=== PATIENT | female | born 1970 | race Caucasian/White ===

== ENCOUNTER → 2024-04-11 14:49 | Outpatient (REF) | payer BC, OTHER, SELFPAY | LOC: HWRAD 14:49 | PROVIDERS: ATTENDING PHYSICIAN Nurse Practitioner Primary Care | DX: M85.89 Other specified disorders of bone density and structure, multiple sites (principal) | CPT/HCPCS: 77080 ==

== ENCOUNTER → 2024-04-12 07:10 | Outpatient (REF) | payer BC, OTHER, SELFPAY | LOC: WDC 07:10 | PROVIDERS: ATTENDING PHYSICIAN Nurse Practitioner Primary Care | DX: Z12.31 Encounter for screening mammogram for malignant neoplasm of breast (principal) | CPT/HCPCS: 77063; 77067 ==

== ENCOUNTER → 2024-04-23 08:57 | Outpatient (REF) | payer BC, OTHER, SELFPAY | LOC: RAD 08:57 | PROVIDERS: ATTENDING PHYSICIAN Obstetrics & Gynecology; FAMILY PHYSICIAN Nurse Practitioner Primary Care | DX: R10.2 Pelvic and perineal pain (principal); N39.46 Mixed incontinence; R39.11 Hesitancy of micturition | CPT/HCPCS: 76830; 76856 ==

== ENCOUNTER 2024-05-19 22:02 | Emergency (ER) | payer BC, OTHER, SELFPAY ==
[2024-05-19 22:35] VITALS: BP 171/103
[2024-05-20 01:37] VITALS: BP 131/118; BMI 29.6
--- NOTE | 2024-05-20 01:54 | ED.GENMED ---
History of Present Illness
<Nabil Kay DO - Last Filed: 05/20/24 03:42>
General
Chief Complaint: Breathing Problem
Source: patient
Exam Limitations: none
Time Seen by Provider: 05/20/24 01:44
Nursing documentation reviewed up to this point in time: agreed with
History of Present Illness
History of Present Illness:
53-year-old female history of bronchiectasis and rheumatoid on embrel [facility] is been on Augmentin for 3 days for URI via phone conversation had some low-grade fevers and cough some productive sputum
No nausea vomiting
Past History
<Nabil Kay DO - Last Filed: 05/20/24 03:42>
Past History
ED Past Medical History: Asthma, HTN, Psychiatric (Depression, ADD), Other (Migraine headaches, narcolepsy, chronic pancreatitis) and Other (Pelvic floor dysfunction, fibromyalgia, irritable bowel syndrome, Sjogren's disease, osteoporosis, kidney
stones, sphincter of Adonis dysfunction)
ED Past Surgical History: Cholecystectomy, , Orthopedic (Rotator cuff repair) and Tonsilectomy
Social History
Tobacco: Former smoker
Alcohol: Occasional
Drug: None
Personal:
Living: with family
Employment: Not employed
Family History
Family History: Other (Noncontributory)
Review of Systems
<Nabil Kay DO - Last Filed: 05/20/24 03:42>
Review of Systems
All Other Systems: Not applicable
Constitutional: Reports fever and fatigue
EENT: Reports no symptoms
Respiratory: Reports cough and trouble breathing
Cardiac: Reports no symptoms
ABD/GI: Reports no symptoms
: Reports no symptoms
Phy Exam
<Nabil Kay DO - Last Filed: 05/20/24 03:42>
Physical Exam
Physical Exam:
Physical Exam
General: no apparent distress, not acutely ill
Neck: No jaundice
Heart: s1/s2 regular rate and rhythm, no murmur. equal radial pulses.
Lungs: Wheezing at the left
Abdomen: Nontender
Neuro: alert and oriented. no focal neurological deficits
Skin: no rash
Psychiatric: well kept. interactive and cooperative
Extremities: no edema.
Scores
<Lashay France PA-C - Last Filed: 05/20/24 11:38>
Heart Failure Risk
Heart Failure Risk Score: Not Applicable
Sepsis
<Lashay France PA-C - Last Filed: 05/20/24 11:38>
Sepsis Screening
Sepsis Assessment: Sepsis Ruled Out
Sepsis Screen
Sepsis Screen: Sepsis Ruled Out
Date: 05/20/24
Time: 11:38
Course
<Nabil Kay DO - Last Filed: 05/20/24 03:42>
Orders/Labs/Results
Orders:
Orders
05/20/24 01:39
COVID-19 Antigen Urgent
Source: Nasal Swab
05/20/24 01:54
Ipratropium/Albuterol Sulfate [Duoneb] 3 ml INH R NOW STA
CR Chest - 2 Views Urgent
Comment:
Reason For Exam: fever cough
05/20/24 01:59
Complete Blood Count/With Diff Urgent
Comprehensive Metabolic Panel Urgent
Influenza A+B Rapid Molecular Urgent
CHIRAG Source: Nasal Swab
Specimen Description:
05/20/24 03:39
Potassium Chloride [KCl] 40 meq PO NOW STA
Abnormal Lab Results
05/20/24
01:59
Hgb 11.8 L g/dL
(12.0-16.0)
Hct 35.1 L %
(37.0-47.0)
MCV 76.1 L fL
(81.0-99.0)
MCH 25.6 L pg
(27.0-31.0)
Neutrophils % 40.7 L %
(42.2-75.2)
Monocytes % 11.1 H %
(1.7-9.3)
Potassium 3.4 L mmol/L
(3.5-5.1)
BUN 4 L mg/dl
(7-17)
05/20/24 01:59
05/20/24 01:59
Vital Signs
Initial and Last Documented VS:
Initial Vital Signs
Temp Pulse Resp BP Pulse Ox
98.0 F 58 20 171/103 96
05/19/24 22:35 05/19/24 22:35 05/19/24 22:35 05/19/24 22:35 05/19/24 22:35
Last Documented Vital Signs
Temp Pulse Resp BP Pulse Ox
97.9 F 55 16 131/118 95
05/20/24 01:37 05/20/24 01:37 05/20/24 01:37 05/20/24 01:37 05/20/24 01:37
Tonialt;Lashay France PA-C - Last Filed: 05/20/24 11:38>
Orders/Labs/Results
Orders:
Orders
05/20/24 01:39
COVID-19 Antigen Urgent
Source: Nasal Swab
05/20/24 01:54
Ipratropium/Albuterol Sulfate [Duoneb] 3 ml INH R NOW STA
CR Chest - 2 Views Urgent
Comment:
Reason For Exam: fever cough
05/20/24 01:59
Complete Blood Count/With Diff Urgent
Comprehensive Metabolic Panel Urgent
Influenza A+B Rapid Molecular Urgent
CHIRAG Source: Nasal Swab
Specimen Description:
05/20/24 03:39
Potassium Chloride [KCl] 40 meq PO NOW STA
Abnormal Lab Results
05/20/24
01:59
Hgb 11.8 L g/dL
(12.0-16.0)
Hct 35.1 L %
(37.0-47.0)
MCV 76.1 L fL
(81.0-99.0)
MCH 25.6 L pg
(27.0-31.0)
Neutrophils % 40.7 L %
(42.2-75.2)
Monocytes % 11.1 H %
(1.7-9.3)
Potassium 3.4 L mmol/L
(3.5-5.1)
BUN 4 L mg/dl
(7-17)
05/20/24 01:59
05/20/24 01:59
Vital Signs
Initial and Last Documented VS:
Initial Vital Signs
Temp Pulse Resp BP Pulse Ox
98.0 F 58 20 171/103 96
05/19/24 22:35 05/19/24 22:35 05/19/24 22:35 05/19/24 22:35 05/19/24 22:35
Last Documented Vital Signs
Temp Pulse Resp BP Pulse Ox
97.9 F 55 16 131/118 95
05/20/24 01:37 05/20/24 01:37 05/20/24 01:37 05/20/24 01:37 05/20/24 01:37
Tonialt;Nabil Kay DO - Last Filed: 05/20/24 03:42>
MDM/Problems Addressed
Differential Diagnosis Includes:
Pneumonia bronchitis bronchiectasis
MDM/Problems Addressed:
Cough shortness of breath
Chronic conditions affecting care:
Rheumatoid
Acute Exacerbation and/or Progression of Chronic Illness:
Rheumatoid bronchiectasis
<Nabil Kay DO - Last Filed: 05/20/24 03:42>
*Radiology
Radiology exam reviewed: preliminary read by ED provider
*Pulse Oximetry
Patient hypoxic: no
*Critical Care Note
Total Time (30-74mins, 75-104mins- exclusive of procedures): Not Applicable
<Nabil Kay DO - Last Filed: 05/20/24 03:42>
Update Note
Update Note:
Update chest x-ray noted labs are noted, allergies noted will discharge with albuterol continue antibiotics
<Lashay France PA-C - Last Filed: 05/20/24 11:38>
Update Note
Update Note:
Update chest x-ray noted labs are noted, allergies noted will discharge with albuterol continue antibiotics
05/20/24: I was notified by patient's pharmacy that did not carry the specific ProAir inhaler that was ordered yesterday. They state that patient has used ProAir respiclick inhaler in the past. I did send this new prescription for patient.
ED Attending Note
<Nabil Kay DO - Last Filed: 05/20/24 03:42>
-
Portions of this chart may have been created with voice recognition software.� Occasional wrong word or��sound alike� substitutions may have occurred due to the inherent limitations of voice recognition software.
Discharge Plan
Departure
Patient Disposition: Home (Routine Discharge)
Date of Disposition: 05/20/24
Time of Disposition: 03:40
Patient with high blood pressure during this ER visit?: No
Condition: Good
Covid-19: Negative COVID-19
Discharge Problem:
Acute bronchitis
Instructions: Acute Bronchitis, Adult (DC), Bronchitis, Adult ED
Prescriptions:
New
albuterol sulfate 90 mcg/actuation HFA aerosol inhaler
2 puff inhalation Q6H PRN (Reason: shortness of breath or wheezing) Qty: 8.5 0RF
benzonatate 200 mg capsule
200 mg PO TID PRN (Reason: Cough) Qty: 20 0RF
Proair Digihaler 90 mcg/actuation aero powdr breath act w/sensor
2 inh inhalation QID PRN (Reason: shortness of breath) Qty: 1 4RF
ProAir RespiClick 90 mcg/actuation aerosol powdr breath activated
2 inh inhalation QID PRN (Reason: shortness of breath) Qty: 1 0RF
No Action
therapeutic multivitamin [Therapeutic] 1 TABLET tablet
1 tab PO DAILY
albuterol sulfate 1 PUFF HFA aerosol inhaler
2 puff inhalation R Q4HPRN PRN (Reason: cough, wheeze) Qty: 1 0RF
colestipol 1 GM tablet
2 gm PO BID
fexofenadine [Hortensia] 180 MG tablet
180 mg PO DAILY
tramadol 50 MG tablet
50 mg PO Q6HPRN PRN (Reason: MILD PAIN)
calcium carbonate [Oyster Shell Calcium 500] 500 MG tablet
1,500 mg PO DAILY
taurine 500 MG capsule
1,000 mg PO DAILY
naratriptan [Amerge] 2.5 MG tablet
2.5 mg PO DAILYPRN PRN (Reason: MIGRAINE)
topiramate [Topamax] 50 MG tablet
50 mg PO BID
cholecalciferol (vitamin D3) 2,000 UNITS tablet
5,000 units PO DAILY
hydrocodone-acetaminophen 1 TABLET tablet
1 tab PO QIDPRN PRN (Reason: MODERATE pain)
alendronate 70 MG tablet
70 mg PO WEEKLY
nortriptyline 25 MG capsule
25 mg PO DAILY
nortriptyline 10 MG capsule
10 mg PO BID
fluticasone propion-salmeterol [Advair Diskus] 1 EACH blister with device
1 ea IH BID
gabapentin 100 MG capsule
100 mg PO Q4H
dextroamphetamine-amphetamine [Adderall XR] 15 MG capsule,extended release 24hr
15 mg PO BID
tofacitinib [Xeljanz XR] 11 MG tablet extended release 24 hr
11 mg PO DAILY
solriamfetol [Sunosi] 150 MG tablet
150 mg PO DAILY
labetalol 100 MG tablet
100 mg PO DAILY 30 Days Qty: 30 0RF
nifedipine 30 mg tablet extended release
30 mg PO DAILY Qty: 30 0RF
prednisone 20 mg tablet
40 mg PO DAILY Qty: 8 0RF
hydrocodone-acetaminophen 5-325 mg tablet
1 tab PO Q8H PRN (Reason: Pain) Qty: 6 0RF
Referrals:
Dena Ge CRNP [Family Provider] - Next open appointment
Stand Alone Forms: Return to Work
Interventions
Interventions:
*Risk Screen - Suicide Last Done: 05/19/24 22:35
*General Assessment Last Done: 05/20/24 01:32
*Neglect/Abuse Screening Last Done: 05/19/24 22:35
ED- Fall Risk Assessment Last Done: 05/20/24 01:32
*ED COVID-19 Vaccine History Last Done: 05/20/24 01:32
*Nursing Disposition Last Done: 05/20/24 04:01
ED- Cardiac Assessment Last Done: 05/20/24 01:32
ED- Pulmonary Assessment Last Done: 05/20/24 01:32
Discharge Date and Time
Discharge Date/Time: 05/20/24 04:02
Print Language: [place]LAND[place]
[2024-05-20] MEDS: DUONEB 3 ML INH (02:03)
[2024-05-20 02:09] LABS: COVID-19 Antigen Negative (Negative)
[2024-05-20 02:10] LABS: % Basophils 0.7 % (0-2); % Eosinophils 3.9 % (0-6); % Immature Granulocytes 0.2 % (0-0.5); % Lymphocytes 43.4 % (20.5-51.1); % Monocytes 11.1 % (1.7-9.3); % Neutrophils 40.7 % (42.2-75.2); Absolute Eosinophils 0.2 10^3/uL (0-0.7); Absolute Lymphocytes 2.4 10^3/uL (1.2-3.4); Absolute Monocytes 0.6 10^3/uL (0.1-0.6); Absolute Neutrophils 2.3 10^3/uL (1.4-6.5); Hematocrit 35.1 % (37.0-47.0); Hemoglobin 11.8 g/dL (12.0-16.0); Mean Corp Hgb Conc. 33.6 g/dL (33.0-37.0); Mean Corpuscular Hgb 25.6 pg (27.0-31.0); Mean Corpuscular Volume 76.1 fL (81.0-99.0); Mean Platelet Volume 9.9 fL (7.4-10.4); Nucleated Red Blood Cells % 0 %; Platelet Count 254 10^3/uL (130-400); Red Blood Cell Count 4.61 10^6/uL (4.20-5.40); Red Cell Dist. Width 13.4 % (11.5-14.5); White Blood Cell Count 5.6 10^3/uL (4.8-10.8)
[2024-05-20 02:31] LABS: ALT (SGPT) 26 U/L (0-35); AST (SGOT) 32 U/L (14-36); Alkaline Phosphatase 71 U/L (38-126); Blood Urea Nitrogen 4 mg/dl (7-17); Calcium 9.4 mg/dl (8.4-10.2); Carbon Dioxide 27 mmol/L (22-30); Chloride 104 mmol/L (98-107); Estimated Creatinine Clearance 97 ml/min; Glucose 90 mg/dl (70-99); Potassium 3.4 mmol/L (3.5-5.1); Sodium 143 mmol/L (135-145); Total Bilirubin 0.9 mg/dl (0.2-1.3); Total Protein 6.7 g/dl (6.3-8.2); eGFR > 60.00
[2024-05-20] MEDS: KCL 40 MEQ PO (03:55)
== END 2024-05-20 04:02 | disposition home or self-care (01) ==
LOC: EMR 22:02
PROVIDERS: Emergency Medicine; EMERGENCY PHYSICIAN Emergency Medicine; FAMILY PHYSICIAN Nurse Practitioner Primary Care
DX: J20.9 Acute bronchitis, unspecified (principal); Z11.52 Encounter for screening for COVID-19; Z87.891 Personal history of nicotine dependence
CPT/HCPCS: 99284; 94640; 71046; 80053; 85025; 87502; 87811

== ENCOUNTER 2025-01-06 04:58 | Inpatient (IN) | payer BC, OTHER, SELFPAY ==
[2025-01-05 22:36] VITALS: BP 159/94
[2025-01-05 23:00] LABS: % Basophils 0.4 % (0-2); % Eosinophils 1.3 % (0-6); % Immature Granulocytes 0.3 % (0-0.5); % Lymphocytes 15.4 % (20.5-51.1); % Monocytes 7.1 % (1.7-9.3); % Neutrophils 75.5 % (42.2-75.2); Absolute Eosinophils 0.1 10^3/uL (0-0.7); Absolute Lymphocytes 1.1 10^3/uL (1.2-3.4); Absolute Monocytes 0.5 10^3/uL (0.1-0.6); Absolute Neutrophils 5.3 10^3/uL (1.4-6.5); Hematocrit 39.7 % (37.0-47.0); Hemoglobin 13.1 g/dL (12.0-16.0); Mean Corpuscular Hgb 26.3 pg (27.0-31.0); Mean Corpuscular Volume 79.6 fL (81.0-99.0); Mean Platelet Volume 9.6 fL (7.4-10.4); Nucleated Red Blood Cells % 0 %; Platelet Count 262 10^3/uL (130-400); Red Blood Cell Count 4.99 10^6/uL (4.20-5.40); Red Cell Dist. Width 13.4 % (11.5-14.5)
[2025-01-05 23:15] LABS: ALT (SGPT) 26 U/L (0-35); AST (SGOT) 30 U/L (14-36); Albumin 4.5 g/dl (3.5-5.0); Alkaline Phosphatase 54 U/L (38-126); Blood Urea Nitrogen 6 mg/dl (7-17); Calcium 9.1 mg/dl (8.4-10.2); Carbon Dioxide 26 mmol/L (22-30); Chloride 107 mmol/L (98-107); Glucose 89 mg/dl (70-99); Lipase 1338 U/L (23-300); Potassium 3.9 mmol/L (3.5-5.1); Sodium 139 mmol/L (135-145); Total Bilirubin 2.4 mg/dl (0.2-1.3); Total Protein 7.5 g/dl (6.3-8.2); eGFR > 60.00
[2025-01-06 01:13] VITALS: BMI 26.3
[2025-01-06 01:15] VITALS: BP 150/94
--- NOTE | 2025-01-06 01:47 | ED.GENMED ---
History of Present Illness
General
Chief Complaint: Abdominal Pain
Source: patient
Exam Limitations: none
Time Seen by Provider: 01/06/25 01:30
Nursing documentation reviewed up to this point in time: agreed with
History of Present Illness
History of Present Illness:
Note:
CHIEF COMPLAINT(S)
Upper abdominal pain.
HISTORY OF PRESENT ILLNESS
The patient is a 54-year-old female with a past medical history of GERD, asthma, hypertension, hyperlipidemia with a history of gallbladder removal who presents with upper abdominal pain. Pain is worse on the right side. It does not wrap around the
back. She reports that the pain is similar to previous episodes she has experienced on and off for the past 25 years, with exacerbations occurring recently. The patient does not have any vomiting but reports episodes of constipation. She denies
chronic pancreatitis. She also experienced a sore throat on Sunday and has conducted an at-home COVID-19 test that returned negative results. She has experienced fevers intermittently. The patient mentions no contact with anyone recently sick. Her
pain has previously been associated with bouts of pancreatitis, with the last known episode occurring before the COVID-19 pandemic. At the time, the cause was undetermined. Currently, her blood work shows significantly elevated lipase levels,
indicative of pancreatitis. Pain is exacerbated by lying down and palpation. The patient denies daily alcohol use and was previously advised about liver issues, though current liver function tests are normal.
ADDITIONAL HISTORY OBTAINED FROM SOURCES OTHER THAN THE PATIENT
Not applicable.
EXTERNAL RECORDS REVIEWED
Reviewed records in [facility], reviewed discharge summary from 05/16/2019 patient seen for acute pancreatitis in no etiology was able to be found
PAST SURGICAL HISTORY
Gallbladder removal.
sections.
SOCIAL HISTORY
The patient denies daily alcohol use and smoking.
MEDICATIONS
The patient reports an allergy to morphine, sulfa drugs, and quinolones. Can tolerate hydromorphone.
PHYSICAL EXAM
- Nursing notes reviewed and vital signs reviewed.
General: Patient is well appearing and in no acute distress; non-toxic
Skin: Warm and dry, no rashes or lesions
Head: Normocephalic, atraumatic
Eyes: Sclera non-icteric. EOMs intact.
Cardiac: Regular rate and rhythm, no murmurs
Peripheral Vascular: No lower extremity swelling or edema
Pulm: Normal respiratory effort, no wheezes, rales, or rhonchi
Abdomen: Epigastric tenderness to palpation, normoactive bowel sounds
Neuro: CN II-XII intact, no focal neurologic deficits.
Psychiatric: Appropriate mood and affect.
PLAN
The plan includes obtaining a computed tomography (CT) scan to assess the biliary tract and pancreas. The patient will be administered intravenous fluids and pain management with hydromorphone.
CT scan reviewed, no acute abnormality within the abdomen or pelvis, no evidence of bowel obstruction, no evidence of pancreatic masses.
Labs reviewed, elevated lipase, elevated total bilirubin, normal LFTs.
Will refer for admission for continued symptomatic management and GI consult
DIFFERENTIAL DIAGNOSIS
The Differential Diagnosis includes, in no particular order and is not limited to:
1. Acute pancreatitis
2. Recurrent pancreatitis
3. Gastroenteritis
4. Peptic ulcer disease
5. Gastritis
6. Hepatitis
7. Biliary duct stone
8. Pancreatic pseudocyst
9. Liver disease
10. Viral infection
Past History
Past History
ED Past Medical History: Asthma, HTN, Psychiatric (Depression, ADD), Other (Migraine headaches, narcolepsy, chronic pancreatitis) and Other (Pelvic floor dysfunction, fibromyalgia, irritable bowel syndrome, Sjogren's disease, osteoporosis, kidney
stones, sphincter of Adonis dysfunction)
ED Past Surgical History: Cholecystectomy, , Orthopedic (Rotator cuff repair) and Tonsilectomy
Social History
Tobacco: Former smoker
Alcohol: Occasional
Drug: None
Personal:
Living: with family
Employment: Not employed
Family History
Family History: Other (Noncontributory)
Review of Systems
Review of Systems
All Other Systems: ROS reviewed and negative except as documented in HPI and ROS
Phy Exam
Physical Exam
Physical Exam:
see hpi
Course
Orders/Labs/Results
Orders:
Orders
01/05/25 22:44
Complete Blood Count/With Diff Urgent
Comprehensive Metabolic Panel Urgent
Lipase Urgent
01/06/25 01:53
CT Abd/pelvis W Iv Cont Urgent
Comment:
Reason For Exam: epigastric pain
Lactated Ringers [Lr] 1,000 ml IV BOLUS
01/06/25 01:54
HYDROmorphone [Dilaudid] 0.5 mg IV NOW STA
01/06/25 03:34
HYDROmorphone [Dilaudid] 0.5 mg IV NOW STA
Abnormal Lab Results
01/05/25
22:44
MCV 79.6 L fL
(81.0-99.0)
MCH 26.3 L pg
(27.0-31.0)
Absolute Lymphs (auto) 1.1 L 10^3/uL
(1.2-3.4)
Neutrophils % 75.5 H %
(42.2-75.2)
Lymphocytes % 15.4 L %
(20.5-51.1)
BUN 6 L mg/dl
(7-17)
Total Bilirubin 2.4 H mg/dl
(0.2-1.3)
Lipase 1338 H* U/L
(23-300)
01/05/25 22:44
01/05/25 22:44
Vital Signs
Initial and Last Documented VS:
Initial Vital Signs
Temp Pulse Resp BP Pulse Ox
99.2 F 71 18 159/94 98
01/05/25 22:36 01/05/25 22:36 01/05/25 22:36 01/05/25 22:36 01/05/25 22:36
Last Documented Vital Signs
Temp Pulse Resp BP Pulse Ox
98.9 F 67 17 156/69 98
01/06/25 02:32 01/06/25 02:32 01/06/25 02:32 01/06/25 02:32 01/06/25 02:32
*Critical Care Note
Total Time (30-74mins, 75-104mins- exclusive of procedures): Not Applicable
Update Note
Update Note:
Update 3:34 am
Reviewed CAT scan findings with patient, patient requesting more pain medication, patient well-appearing, afebrile
ED Attending Note
-
Portions of this chart may have been created with voice recognition software.� Occasional wrong word or��sound alike� substitutions may have occurred due to the inherent limitations of voice recognition software.
Discharge Plan
Departure
Patient Disposition: Admit
Date of Disposition: 01/06/25
Time of Disposition: 03:39
Admit to: Med/Surg
Presentation/result/management discussed w/ accepting MD/DO: Hospitalist
Patient with high blood pressure during this ER visit?: Yes
Condition: Fair
Discharge Problem:
Acute pancreatitis
Prescriptions:
No Action
Therapeutic 1 TABLET tablet
1 tab PO DAILY
colestipol 1 GM tablet
2 gm PO BID
tramadol 50 MG tablet
50 mg PO Q6HPRN PRN (Reason: MILD PAIN)
calcium carbonate [Oyster Shell Calcium 500] 500 MG tablet
1,500 mg PO DAILY
naratriptan [Amerge] 2.5 MG tablet
2.5 mg PO DAILYPRN PRN (Reason: MIGRAINE)
cholecalciferol (vitamin D3) 2,000 UNITS tablet
5,000 units PO DAILY
nortriptyline 25 MG capsule
25 mg PO DAILY
fluticasone propion-salmeterol [Advair Diskus] 1 EACH blister with device
1 ea IH BID
gabapentin 100 MG capsule
100 mg PO Q4H
albuterol sulfate 90 mcg/actuation HFA aerosol inhaler
2 puff inhalation Q6H PRN (Reason: shortness of breath or wheezing) Qty: 8.5 0RF
ProAir RespiClick 90 mcg/actuation aerosol powdr breath activated
2 inh inhalation QID PRN (Reason: shortness of breath) Qty: 1 0RF
hydrocodone-acetaminophen [Frannie] 7.5-325 mg Tablet
1 tab PO Q6H PRN (Reason: pain)
Enbrel 25 mg/0.5 mL Solution
SC QWEEK
Patient Comments:
pt is unsure of exact dose
labetalol 100 MG tablet
100 mg PO BID
Referrals:
Dena Ge CRNP [Family Provider, Internal Medicine]
Interventions
Interventions:
*Risk Screen - Suicide Last Done: 01/05/25 22:36
*General Assessment Last Done: 01/05/25 22:36
*Neglect/Abuse Screening Last Done: 01/05/25 22:36
*ED- Fall Risk Assessment Last Done: 01/06/25 01:16
*ED COVID-19 Vaccine History Last Done: 01/06/25 01:16
AY-Rcbwul-Lzqxhgupqd Assessment Last Done: 01/06/25 01:17
Discharge Date and Time
Print Language: MARSHALLESE
[2025-01-06 02:32] VITALS: BP 156/69
[2025-01-06] MEDS: LR 1000 IV (02:33)
[2025-01-06] MEDS: DILAUDID 0.5 MG IV ×5 (02:35→21:30)
--- NOTE | 2025-01-06 04:09 | HPS.HSE ---
Family Physician
-
Family Physician: Dena Ge
Chief Complaint
-
Abdominal pain
History of Present Illness
This is a 54-year-old female with past medical history significant for bronchiectasis, rheumatoid arthritis, Sjogren's disease, recurrent pancreatitis who presents to the emergency department with 1 day of increasing epigastric abdominal pain
radiating to the back and out of seated with nausea and vomiting without diarrhea.
Patient admitted at she has been having about 1 to 2-week history of some anorexia. Nausea and then more recently developed the epigastric abdominal pain with radiation that is increasing in severity. This is reminiscent of prior episodes of
pancreatitis.
Patient reports that she had multiple episodes of pancreatitis started in the year 1999. She was hospitalized and had extensive evaluation by 2004 she has had several sphincterectomy's and was told she had sphincter of Oddi dysfunction and she
could not get anymore sphincterectomy was due to increase in strictures. Ultimately she did develop liver abnormalities that required stent placement. She reported that her last bout of pancreatitis was in 2019. She has not had an EGD, or ERCP
since that time.
She denies any alcohol use. She is status post cholecystectomy.
Medical History
Past Medical History
Past Medical History: Reports Other
Additional Past Medical History:
RA
Sjogren's syndrome
Narcolepsy
Migraine headaches next hyperlipidemia next sphincter of Oddi dysfunction
Past Surgical History: Reports Cholecystectomy
Social History
Tobacco: Non-smoker
Alcohol: None
Drug: None
Family History
Family History: Not pertinent
Allergies / Home Medications
Allergies reflects when Allergies were last updated in [facility].
Home Medications with original date entered in [facility]
Allergy/Medication List:
Allergies
Allergy/AdvReac Type Severity Reaction Status Date / Time
colchicine Allergy Anaphylaxis Verified 01/06/25 01:16
NSAIDS (Non-Steroidal Allergy pts notes Verified 01/06/25 01:16
Anti-Inflamma she had an
asthma
attackafter
receiving
Quinolones Allergy MUSCLE Verified 01/06/25 01:16
SPASMS
Sulfa (Sulfonamide Allergy Hives Verified 01/06/25 01:16
Antibiotics)
vancomycin Allergy Rash Verified 01/06/25 01:16
fluoroquinolones Allergy Anaphylaxis Uncoded 01/06/25 01:16
molds Allergy asthma Uncoded 01/06/25 01:16
attach
silk surgical tape Allergy Rash Uncoded 01/06/25 01:16
Home Medications
therapeutic multivitamin (Therapeutic tablet) 1 tab PO DAILY 09/02/10
colestipol 1 gram tablet 2 gm PO BID 05/05/19
calcium carbonate (Oyster Shell Calcium 500) 1,500 mg PO DAILY 05/13/19
cholecalciferol (vitamin D3) 50 mcg (2,000 unit) tablet 5,000 units PO DAILY 05/13/19
naratriptan 2.5 mg tablet (Amerge) 2.5 mg PO DAILYPRN PRN MIGRAINE 05/13/19
tramadol 50 mg tablet 50 mg PO Q6HPRN PRN MILD PAIN 05/13/19
fluticasone 500 mcg-salmeterol 50 mcg/dose blistr powdr for inhalation (Advair Diskus) 1 ea IH BID 05/20/20
gabapentin 100 mg capsule 100 mg PO Q4H 05/20/20
nortriptyline 25 mg capsule 25 mg PO DAILY 05/20/20
albuterol sulfate 90 mcg/actuation aerosol inhaler 2 puff inhalation Q6H PRN shortness of breath or wheezing #8.5 grams 05/20/24
albuterol sulfate 90 mcg/actuation breath activated powder inhaler (ProAir RespiClick) 2 inh inhalation QID PRN shortness of breath #1 ea 05/20/24
etanercept 25 mg/0.5 mL subcutaneous solution (Enbrel) mg SC QWEEK 01/06/25
hydrocodone 7.5 mg-acetaminophen 325 mg tablet 1 tab PO Q6H PRN pain 01/06/25
labetalol 100 mg tablet 100 mg PO BID 01/06/25
Review of Systems
-
History Source: Patient
Constitutional: Reports No Symptoms
EENT: Reports No Symptoms
Respiratory: Reports No Symptoms
Cardiac: Reports No Symptoms
Abdomen/GI: Reports Abdominal Pain, Nausea and Vomiting
: Reports No Symptoms
Musculoskeletal: Reports No Symptoms
Skin: Reports No Symptoms
Neurological: Reports No Symptoms
Endocrine: Reports No Symptoms
Hematologic/Lymphatic: Reports No Symptoms
Psych: Reports No Symptoms
Physical Exam
Vital Signs
Vital Signs
Temp Pulse Resp BP Pulse Ox
98.9 F 67 17 156/69 98
01/06/25 02:32 01/06/25 02:32 01/06/25 02:32 01/06/25 02:32 01/06/25 02:32
Physical Exam
General: Well Developed, Well Nourished and No Apparent Distress
HEENT: NormoCephalic, Moist mucous membranes and Atraumatic
Respiratory: Clear
Cardiac: S1/S2 and Regular Rhythm; No Murmur or Rub
GI: Soft, Non Tender, Non Distended and Normal Bowel Sounds; No Organomegaly
Rectal: Deferred by Provider
Musculoskeletal: No Clubbing, No Cyanosis and No Edema
Skin: No Rash
Neuro: Nonfocal/grossly intact
Laboratory Results
-
01/05/25 22:44
01/05/25 22:44
Laboratory Results
Total Bilirubin 2.4 mg/dl (0.2-1.3) H 01/05/25 22:44
AST 30 U/L (14-36) 01/05/25 22:44
ALT 26 U/L (0-35) 01/05/25 22:44
Alkaline Phosphatase 54 U/L (38-126) 01/05/25 22:44
Lipase 1338 U/L (23-300) H* 01/05/25 22:44
Data Reviewed
-
CT Scan: Report Reviewed by me
Lab Data: Labs Reviewed by me
Old Records: Reviewed
Impression/Plan
-
IMPRESSION:
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
pancreatitis. The LFTs are normal. No ductal dilation on CT. s/p cholecystectomy. No pancreatic anomalies on CT. No h/o ETOH. Suspect pancreatic duct/sphincter of Oddi disease. Had MRCP in 2019 under similar presentation circumstances with
'Normal-appearing pancreatic and common bile ducts. Status-post cholecystectomy'.
PLAN:
Acute pancreatitis - Suspect sphincter of Oddi dysfunction vs stricture. Cannot rule out IgG4 due to h/o autoimmune dz. Non-toxic appearing, HD stable. Normal LFTs. Normal CT a/p. No etoh.
- admit to med/surg
- NPO. ADAT later
- pain control, anti-emetics and IV fluids
- trend lfts
- GI consult for cryptogenic pancreatitis
- MRCP
DVT PPX - lovenox sq
Code status - Full Code
[2025-01-06 04:20] VITALS: BP 141/74
[2025-01-06 07:26] VITALS: BP 144/78
[2025-01-06 07:27] VITALS: BMI 26.3
[2025-01-06] MEDS: PAMELOR 25 MG PO (09:24)
[2025-01-06] MEDS: NEURONTIN 100 MG PO ×5 (09:24→20:03)
[2025-01-06] MEDS: TRANDATE 100 MG PO ×2 (09:24→19:27)
[2025-01-06] MEDS: D5LR 1000 IV ×2 (09:24→17:12)
[2025-01-06] MEDS: ADVAIR HFA 230/21 MCG INHALER 2 PUFF INH ×2 (09:35→19:54)
--- NOTE | 2025-01-06 09:42 | CON.GI ---
Addendum entered and electronically signed by Tai Donahue MD 01/06/25 11:45:
Patient seen and examined, agree with nurse practitioner note. Patient is a 54-year-old female with past medical history as noted who presents with recurrent abdominal pain and changes consistent with pancreatitis. She has a longstanding history
of pancreatitis with multiple ERCPs, with sphincterotomy and stents in the past, the last was around 2003. Her last flare of pancreatitis was about 5 years ago, and had been doing pretty well up until recently with new onset of similar symptoms.
On admission her lipase was significantly elevated and CT scan shows changes consistent with pancreatitis. MRCP showed no necrosis, CBD stone, other structural abnormality and normal pancreatic duct. On exam she has mild epigastric tenderness
otherwise is benign.
1. 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
past. At this point we will continue supportive care, aggressive IV fluids, pain control and bowel rest. We discussed that if she were to have continued recurrent episodes would likely follow-up with her previous physician to consider repeat ERCP.
Original Note:
Consultation
-
Date/Time Consultation Requested: 01/06/25729
Date/Time Consultation Performed: 01/06/25944
Requesting Provider: geovani Carcamo MD
Performing Provider: DANNY Reilly, Elvis Donahue MD
Reason for Consultation: pancreatitis
Medical History
Chief Complaint / HPI
Chief Complaint: abdominal pain
History of Present Illness:
Pt is a 54yo presents with multiple medical problems with prior annie, RA, sjogrens, autoimmune hepatitis, fatty liver, fibromyalgia, asthma, ectopic atrial tachycardia, HTN, bipolar, anxiety, IBS, gastroparesis and multiple bout of pancreatitis
with hx sphincter of Oddi dysfunction. She has hx multiple ERCP with prior procedures with Dr. Mistry at [place] and maintain on TCA for chronic pain. Last issues with pancreatitis was in [address] Mistry follow up. She
did have follow up with Dr. Cárdenas in 2022 with IBS and continued on Colestipol. She now presents with onset of abdominal pain. On admission noted with normal WBC and normal LFT's with lipase 1338. CT on admission with no acute pathology and
pancreas unremarkable with moderate stool in colon. Also noted renal stone and hepatic cyst vs hemangioma. She also proceed to MRCP with noted trace signal pancreatic tail with pancreatitis. No collections and normal pancreatic duct. prior annie
with prominent duct normal post annie and CBD 8mm. stable liver cyst, small HH. Lab with lipase 1338 and normal LFT's.
In review with patient noted with hx chronic abdominal pain with worsening symptoms last 24 hours. Pain was 10/10 on admission now 6/10. She admits to some pill dysphagia with dry mouth with sjogrens. She has occasional GERD and nausea without
vomiting. She admits to wt loss over last 2 years without use of wt loss medications. She has hx bile acid dairrhea on chronic colestipol. She denies rectal bleeding.
Past Medical History
Past Medical History: Arrhythmias (ectopic atrial tachycardia ), Asthma, Fibromyalgia, HTN, Valvular Disease (mitral valve regurg), Psychiatric (bipolar, anxiety ) and Other ( sjogrens, prior pancreatitis, sphincter of Oddi dysfunction, ectopic
atrial tachycardia , migraines, osteopenia, narcolepsy, gastroparesis, IBS, thalassemia, fatty liver, autoimmune hepatitis, RA, nephrolithiasis, bronchietasis, tortuous colon prior colonoscopy with Dr. Burkett )
Past Surgical History: Cholecystectomy, , Gynecological (D+E, endometrial ablation), Orthopedic (rotator cuff repair, left shoulder surgery ), Tonsilectomy and Other (nasal cyst removal, multiple ERCP with sphincterotomy, breast lumpectomy)
Social History
Tobacco: Former Smoker (quit 1996)
Alcohol: None
Drug: None and Other (+ distant hx marijuana use in college )
Personal:
Living: With Family
Employment: Employed
Family History
Family History: Adopted (pt know her family hx and denies family hx pancreatic problems)
Allergies / Home Medications
Allergy/AdvReac Type Severity Reaction Status Date / Time
colchicine Allergy Anaphylaxis Verified 01/06/25 01:16
NSAIDS (Non-Steroidal Allergy pts notes Verified 01/06/25 01:16
Anti-Inflamma she had an
asthma
attackafter
receiving
Quinolones Allergy MUSCLE Verified 01/06/25 01:16
SPASMS
Sulfa (Sulfonamide Allergy Hives Verified 01/06/25 01:16
Antibiotics)
vancomycin Allergy Rash Verified 01/06/25 01:16
fluoroquinolones Allergy Anaphylaxis Uncoded 01/06/25 01:16
molds Allergy asthma Uncoded 01/06/25 01:16
attach
silk surgical tape Allergy Rash Uncoded 01/06/25 01:16
�Medication �Instructions �Recorded
therapeutic multivitamin 1 tab PO DAILY 09/02/10
(Therapeutic tablet)
colestipol 1 gram tablet 2 gm PO BID 05/05/19
calcium carbonate (Oyster Shell 1,500 mg PO DAILY 05/13/19
Calcium 500)
cholecalciferol (vitamin D3) 50 5,000 units PO DAILY 05/13/19
mcg (2,000 unit) tablet
naratriptan 2.5 mg tablet (Amerge) 2.5 mg PO DAILYPRN PRN MIGRAINE 05/13/19
tramadol 50 mg tablet 50 mg PO Q6HPRN PRN MILD PAIN 05/13/19
fluticasone 500 mcg-salmeterol 50 1 ea IH BID 05/20/20
mcg/dose blistr powdr for
inhalation (Advair Diskus)
gabapentin 100 mg capsule 100 mg PO Q4H 05/20/20
nortriptyline 25 mg capsule 25 mg PO DAILY 05/20/20
albuterol sulfate 90 mcg/actuation 2 puff inhalation Q6H PRN 05/20/24
aerosol inhaler shortness of breath or wheezing
#8.5 grams
albuterol sulfate 90 mcg/actuation 2 inh inhalation QID PRN shortness 05/20/24
breath activated powder inhaler of breath #1 ea
(ProAir RespiClick)
etanercept 25 mg/0.5 mL mg SC QWEEK 01/06/25
subcutaneous solution (Enbrel)
hydrocodone 7.5 mg-acetaminophen 1 tab PO Q6H PRN pain 01/06/25
325 mg tablet
labetalol 100 mg tablet 100 mg PO BID 01/06/25
Review of Systems
-
History Source: Patient
Constitutional: Reports No Symptoms
EENT: Reports No Symptoms
Respiratory: Reports Cough (with hx bronchietasis )
Cardiac: Reports No Symptoms
Abdomen/GI: Reports Abdominal Pain and Nausea
: Reports No Symptoms
Musculoskeletal: Reports No Symptoms
Skin: Reports No Symptoms
Neurological: Reports Weakness
Endocrine: Reports No Symptoms
Hematologic/Lymphatic: Reports No Symptoms
Vital Signs
Temp Pulse Resp BP Pulse Ox
99 F 67 16 144/78 96
01/06/25 07:26 01/06/25 09:38 01/06/25 09:38 01/06/25 07:26 01/06/25 09:38
Physical Exam
Exam
General: Well Developed, Well Nourished, No Apparent Distress and Comfortable
HEENT: Normocephalic and Anicteric
Respiratory: Clear
Cardiac: Regular Rhythm
GI: Soft, Non Distended and Tender (minimal upper abdominal pain )
Musculoskeletal: No Clubbing and No Cyanosis
Skin: Warm and Dry
Neuro: Awake, Alert and AO x 3
Psych: Calm
Results
WBC 7.0 10^3/uL (4.8-10.8) 01/05/25 22:44
Hgb 13.1 g/dL (12.0-16.0) 01/05/25 22:44
Hct 39.7 % (37.0-47.0) 01/05/25 22:44
MCV 79.6 fL (81.0-99.0) L 01/05/25 22:44
Plt Count 262 10^3/uL (130-400) 01/05/25 22:44
Absolute Neuts (auto) 5.3 10^3/uL (1.4-6.5) 01/05/25 22:44
Sodium 139 mmol/L (135-145) 01/05/25 22:44
Potassium 3.9 mmol/L (3.5-5.1) 01/05/25 22:44
Chloride 107 mmol/L (98-107) 01/05/25 22:44
Carbon Dioxide 26 mmol/L (22-30) 01/05/25:44
BUN 6 mg/dl (7-17) L 01/05/25:44
Creatinine 0.7 mg/dL (0.6-1.0) 01/05/25:44
Calcium 9.1 mg/dl (8.4-10.2) 01/05/25:44
Total Bilirubin 2.4 mg/dl (0.2-1.3) H 01/05/25:44
AST 30 U/L (14-36) 01/05/25:44
ALT 26 U/L (0-35) 01/05/25:44
Alkaline Phosphatase 54 U/L (38-126) 01/05/25:44
Lipase 1338 U/L (23-300) H* 01/05/25 22:44
Diagnostic Image Results:
01/06/25 CT Abd/pelvis W Iv Cont
IMPRESSION: No acute pathology of the abdomen or pelvis identified. pancreas unremarkable
Moderate fecal material throughout the colon. Progressed.
2 mm nonobstructing right renal stone. Stable
Small hypodense hepatic and splenic lesions likely cysts or hemangiomas. Increased in number. The largest is in the liver and is stable suggesting it is benign.
01/06/25 MR Mrcp Without
1. There is trace T2 signal along the pancreatic body/tail which is likely related to known pancreatitis. There are no peripancreatic collections. The pancreatic duct appears within normal limits.
2. Prior cholecystectomy with mild prominence of the biliary ducts, however within normal limits following cholecystectomy.
3. There is a stable 9 mm T2 hyperintensity within the inferior right hepatic lobe which is likely benign and may represent a small cyst or hemangioma.
4. Small hiatal hernia.
CBD 8 mm no intra and extrahepatic biliary dilatation
Prior GI Procedures:
EGD: years ago
Colonoscopy: 2017 [facility] recall as normal due to hx tortous colon,
2017 virtual
No clinically significant polyps are detected.
In the region of the cecum, mild diffuse mucosal irregularity is demonstrated. Although possibly related to unopacified, adherent fecal residue, the possibility mucosal abnormality/inflammation cannot be excluded. However, CT virtual colonoscopy is
neither sensitive nor specific for evaluation of mucosal inflammation.
Assessment / Plan
-
Pt is a 54yo presents with multiple medical problems with prior annie, RA, sjogrens, autoimmune hepatitis, fatty liver, fibromyalgia, asthma, ectopic atrial tachycardia, HTN, bipolar, anxiety, IBS, gastroparesis and multiple bout of pancreatitis
with hx sphincter of Oddi dysfunction. She has hx multiple ERCP with prior procedures with Dr. Mistry at [place] and maintain on TCA for chronic pain. Last issues with pancreatitis was in [address] Mistry follow up. She did
have follow up with Dr. Cárdenas in 2022 with IBS and continued on Colestipol. She now presents with onset of abdominal pain. On admission noted with normal WBC and normal LFT's with lipase 1338. CT on admission with no acute pathology and pancreas
unremarkable with moderate stool in colon. Also noted renal stone and hepatic cyst vs hemangioma. She also proceed to MRCP with noted trace signal pancreatic tail with pancreatitis. No collections and normal pancreatic duct. prior annie with
prominent duct normal post annie and CBD 8mm. stable liver cyst, small HH.Lab with lipase 1338 and normal LFT's.
-pancreatitis
-hx prior bouts of pancreatitis and prior sphincter of Oddi dysfunction and prior ERCP's at [place]
-chronic abdominal pain -on TCA and gabapentin
-dysphagia
-IBS with diarrhea on Colestipol prior to admission
- CT with moderate stool burden
-wt loss over 2 years
other med problems:
prior annie, RA, sjogrens, autoimmune hepatitis, fatty liver, fibromyalgia, asthma, ectopic atrial tachycardia, HTN, bipolar, anxiety,gastroparesis, tortuous colon
PLAN:
etiology of recurrent pancreatitis related to sphincter of Oddi dysfunction vs other-- pt denies ETOH use or new medications, hx annie without CBD stone on MRCP, calcium normal on admission, prior IGG4 28 in 2019,
cont IVF
pain control per hospitalist
pt feeling better today will allow clear diet
OP follow up with Dr. Mistry at [place] if recurrent pain and has also seen Dr. Cárdenas in past
remain on Colestipol but hold as not on formulary -- if needed add questran but will hold for now with moderate stool on imaging
cont Miralax and senna PRN
-
-
Thank you for consultation and allowing me to participate in the patient's care. Please call the contract clerk automobile GI physician during the after hours with any questions or concerns.
--- NOTE | 2025-01-06 14:31 | CM ---
CM reviewed chart and met with pt and bedside in rm [id number]. Pt lives with , multistory home, 1 OBED.
Independent in ADLs. No equipment in home.
History of VN with IV antibiotics many years ago, no hx SNF.
PCP: Dena Ge
Pharmacy: [facility]
Plan: Anticipate discharge home pending ongoing medical evaluation, continue to follow for needs
[2025-01-06 15:10] VITALS: BP 137/90
[2025-01-06] MEDS: LOVENOX 40 MG SC (17:09)
[2025-01-06] MEDS: NON-FORMULARY ITEM 2 GM PO (20:02)
[2025-01-06 23:00] VITALS: BP 132/71
[2025-01-07] MEDS: D5LR 1000 IV ×2 (00:40→08:26)
[2025-01-07] MEDS: DILAUDID 0.5 MG IV ×4 (01:30→20:13)
--- NOTE | 2025-01-07 06:43 | W.PN.GI.CBS2 ---
Today's Communication / Plan
-
Please see assessment and plan for details.
Assessment / Plan
-
1. Pancreatitis : Mild, interstitial, with complicated history with recurrent pancreatitis in the past related to previous sphincter of Oddi dysfunction and multiple ERCPs. Overall she is improving, exam is benign. Advance to full liquids and
continue IV fluids for now, await morning labs. The etiology for this flare is unclear, possibly related to prior procedures, ampullary stenosis/PD stricture, though has been doing well with with this being her only flare in the last several years.
Subjective
Subjective
Date of Service: January 07, 2025
Patient feeling much better overall, did have some pain yesterday afternoon, though improved this morning, tolerating clears without difficulty. No fever, chills, nausea or vomiting.
Objective
Data Reviewed
Laboratory Data:
Laboratory Results
Total Bilirubin 2.4 mg/dl (0.2-1.3) H 01/05/25 22:44
AST 30 U/L (14-36) 01/05/25 22:44
ALT 26 U/L (0-35) 01/05/25 22:44
Alkaline Phosphatase 54 U/L (38-126) 01/05/25 22:44
Lipase 1338 U/L (23-300) H* 01/05/25 22:44
Vital Signs and I&O:
Vital Signs
Temp Pulse Resp BP Pulse Ox
98.9 F 62 18 132/71 97
01/06/25 23:00 01/06/25 23:00 01/06/25 23:00 01/06/25 23:00 01/06/25 23:00
I&O
01/05/25 01/06/25 01/07/25
06:59 06:59 06:59
Intake Total 3260 / 3260
Balance 3260 / 3260
Physical Exam
Physical Exam
General: NAD
Abdomen: normal bowel sounds, soft, minimal epigastric tenderness, no masses or bruits, no ascites
[2025-01-07 07:31] LABS: Hematocrit 34.6 % (37.0-47.0); Hemoglobin 11.5 g/dL (12.0-16.0); Mean Corp Hgb Conc. 33.2 g/dL (33.0-37.0); Mean Corpuscular Hgb 26.4 pg (27.0-31.0); Mean Corpuscular Volume 79.4 fL (81.0-99.0); Mean Platelet Volume 9.8 fL (7.4-10.4); Platelet Count 248 10^3/uL (130-400); Red Blood Cell Count 4.36 10^6/uL (4.20-5.40); Red Cell Dist. Width 13.7 % (11.5-14.5); White Blood Cell Count 5.3 10^3/uL (4.8-10.8)
[2025-01-07 08:09] LABS: Blood Urea Nitrogen 3 mg/dl (7-17); Calcium 8.8 mg/dl (8.4-10.2); Carbon Dioxide 29 mmol/L (22-30); Chloride 108 mmol/L (98-107); Estimated Creatinine Clearance 77 ml/min; Glucose 103 mg/dl (70-99); Magnesium 1.9 mg/dl (1.6-2.3); Potassium 3.8 mmol/L (3.5-5.1); Sodium 141 mmol/L (135-145); eGFR > 60.00
[2025-01-07] MEDS: ADVAIR HFA 230/21 MCG INHALER 2 PUFF INH ×2 (08:13→19:24)
[2025-01-07] MEDS: NON-FORMULARY ITEM 2 GM PO ×2 (08:27→20:12)
[2025-01-07] MEDS: TRANDATE 100 MG PO ×2 (08:28→20:12)
[2025-01-07] MEDS: NEURONTIN 100 MG PO ×5 (08:28→20:12)
[2025-01-07] MEDS: PAMELOR 25 MG PO (08:28)
[2025-01-07 08:29] VITALS: BP 144/89
[2025-01-07] MEDS: HYCET 7.5/325 ORAL SOLUTION 5 ML PO ×2 (08:32→16:12)
[2025-01-07 10:11] VITALS: BMI 26.1
--- NOTE | 2025-01-07 10:57 | CM ---
Patient seen at bedside with no needs at this time. CM will continue to follow for discharge planning needs.
Plan; home with no needs anticipated.
--- NOTE | 2025-01-07 11:51 | W.PN.HOSP.TC ---
Today's Communication/Plan
-
Continue with pain regimen and symptomatic treatment
Diet per GI
Assessment / Plan
Assessment / Plan
IMPRESSION:
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
pancreatitis. The LFTs are normal. No ductal dilation on CT. s/p cholecystectomy. No pancreatic anomalies on CT. No h/o ETOH. Suspect pancreatic duct/sphincter of Oddi disease. Had MRCP in 2019 under similar presentation circumstances with
'Normal-appearing pancreatic and common bile ducts. Status-post cholecystectomy'.
PLAN:
Acute pancreatitis -unclear etiology
History of remote pancreatitis status post prior sphincterotomy for sphincter of Oddi dysfunction 2003. Last episode of pancreatitis 5 years ago.
Non-toxic appearing, HD stable. Normal LFTs. Normal CT a/p. No etoh.
Cannot rule out IgG4 due to h/o autoimmune dz. Hx of RA.
MRI of the abdomen shows no evidence of stone or biliary obstruction.
-Patient placed on clear liquid diet-continue diet per GI
- Continue with symptomatic treatment. Depending on clinical progress may need ERCP
- pain control, anti-emetics and IV fluids
- trend lfts
- GI following
DVT PPX - lovenox sq
Code status - Full Code
Anticipated Discharge: > 48 hours
Subjective/Interval History
-
Date of Service: January 07, 2025
Patient still experiencing abdominal pain leading both p.o. and IV pain medication today. She is put on a liquid diet which she is tolerating albeit mild nausea.
No fever or chills.
Denies shortness of breath.
Objective Data
-
Labs:
Laboratory Results
01/07/25
07:09
WBC 5.3
Hgb 11.5 L
Hct 34.6 L
Plt Count 248
Sodium 141
Potassium 3.8
Chloride 108 H
Carbon Dioxide 29
BUN 3 L
Creatinine 0.7
Glucose 103 H
Calcium 8.8
Vital Signs:
Vital Signs
Temp Pulse Resp BP Pulse Ox
98.4 F 56 18 144/89 98
01/07/25 08:29 01/07/25 08:29 01/07/25 08:29 01/07/25 08:29 01/07/25 08:29
I&O
01/06/25 01/07/25 01/08/25
06:59 06:59 06:59
Intake Total 3260 / 3260
Balance 3260 / 3260
Physical Exam
-
General: Comfortable
Respiratory: Clear to Auscultation and Non Labored Respirations; Negative Accessory Resp Muscle Use
Cardiac: Regular Rhythm and S1/S2
GI: Soft, Nondistended and Normal Bowel Sounds; Negative Tender (epigastric area)
Neuro: AO x 3
Psych: Calm
Data Reviewed
-
Labs: Labs Reviewed by me
[2025-01-07] MEDS: TYLENOL 650 MG PO (14:27)
[2025-01-07 15:58] VITALS: BP 161/87
[2025-01-07] MEDS: LOVENOX SC (17:12)
[2025-01-07 23:48] VITALS: BP 136/78
[2025-01-08] MEDS: DILAUDID 0.5 MG IV ×3 (00:49→10:30)
--- NOTE | 2025-01-08 06:09 | W.PN.GI.CBS2 ---
Today's Communication / Plan
-
Please see assessment and plan for details.
Assessment / Plan
-
1. Pancreatitis : Mild, interstitial, with complicated history with recurrent pancreatitis in the past related to previous sphincter of Oddi dysfunction and multiple ERCPs. Overall she is improving, exam is benign. This is her first episode in
several years, now much improved. The etiology for this flare is unclear, possibly related to prior procedures, ampullary stenosis/PD stricture, though has been doing well with with this being her only flare in the last several years. At this
point we will advance diet, and if tolerates Is okay to DC from GI standpoint pending morning labs.
Subjective
Subjective
Date of Service: January 08, 2025
Patient feeling okay, pain episodes are much less frequent, overall doing well, tolerated full liquids without difficulty, no fever or chills.
Objective
Data Reviewed
Laboratory Data:
Laboratory Results
Magnesium 1.9 mg/dl (1.6-2.3) 01/07/25 07:09
Total Bilirubin 2.4 mg/dl (0.2-1.3) H 01/05/25 22:44
AST 30 U/L (14-36) 01/05/25 22:44
ALT 26 U/L (0-35) 01/05/25 22:44
Alkaline Phosphatase 54 U/L (38-126) 01/05/25 22:44
Lipase 1338 U/L (23-300) H* 01/05/25 22:44
Vital Signs and I&O:
Vital Signs
Temp Pulse Resp BP Pulse Ox
98.1 F 56 16 136/78 100
01/07/25 23:48 01/07/25 23:48 01/07/25 23:48 01/07/25 23:48 01/07/25 23:48
I&O
01/06/25 01/07/25 01/08/25
06:59 06:59 06:59
Intake Total 3260 / 3260 1919
Balance 0 / 3260 1919
Physical Exam
Physical Exam
General: NAD
Abdomen: normal bowel sounds, soft, no tenderness, no masses or bruits, no ascites
[2025-01-08 07:31] LABS: Hematocrit 37.1 % (37.0-47.0); Mean Corp Hgb Conc. 32.3 g/dL (33.0-37.0); Mean Corpuscular Volume 80.3 fL (81.0-99.0); Mean Platelet Volume 10.1 fL (7.4-10.4); Platelet Count 258 10^3/uL (130-400); Red Blood Cell Count 4.62 10^6/uL (4.20-5.40); Red Cell Dist. Width 13.3 % (11.5-14.5); White Blood Cell Count 5.9 10^3/uL (4.8-10.8)
[2025-01-08 07:45] VITALS: BP 130/86
[2025-01-08 08:02] LABS: ALT (SGPT) 20 U/L (0-35); AST (SGOT) 28 U/L (14-36); Albumin 4.2 g/dl (3.5-5.0); Alkaline Phosphatase 40 U/L (38-126); Blood Urea Nitrogen 3 mg/dl (7-17); Calcium 9.4 mg/dl (8.4-10.2); Carbon Dioxide 26 mmol/L (22-30); Chloride 106 mmol/L (98-107); Estimated Creatinine Clearance 77 ml/min; Glucose 94 mg/dl (70-99); Lipase 531 U/L (23-300); Potassium 3.9 mmol/L (3.5-5.1); Sodium 140 mmol/L (135-145); Total Bilirubin 1.4 mg/dl (0.2-1.3); Total Protein 6.9 g/dl (6.3-8.2); eGFR > 60.00
[2025-01-08] MEDS: ADVAIR HFA 230/21 MCG INHALER 2 PUFF INH (08:05)
[2025-01-08] MEDS: NON-FORMULARY ITEM 2 GM PO (08:45)
[2025-01-08] MEDS: TRANDATE 100 MG PO (08:46)
[2025-01-08] MEDS: NEURONTIN 100 MG PO ×3 (08:46→14:27)
[2025-01-08] MEDS: PAMELOR 25 MG PO (08:47)
[2025-01-08] MEDS: TYLENOL 650 MG PO (08:48)
--- NOTE | 2025-01-08 13:21 | W.PN.HOSP.TC ---
Today's Communication/Plan
-
Advance to low-fat diet
DC planning
Assessment / Plan
Assessment / Plan
IMPRESSION:
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
pancreatitis. The LFTs are normal. No ductal dilation on CT. s/p cholecystectomy. No pancreatic anomalies on CT. No h/o ETOH. Suspect pancreatic duct/sphincter of Oddi disease. Had MRCP in 2019 under similar presentation circumstances with
'Normal-appearing pancreatic and common bile ducts. Status-post cholecystectomy'.
PLAN:
Acute pancreatitis -unclear etiology
History of remote pancreatitis status post prior sphincterotomy for sphincter of Oddi dysfunction 2003. Last episode of pancreatitis 5 years ago.
Non-toxic appearing, HD stable. Normal LFTs. Normal CT a/p. No etoh.
Cannot rule out IgG4 due to h/o autoimmune dz. Hx of RA.
MRI of the abdomen shows no evidence of stone or biliary obstruction.
-Patient diet advanced to low fat diet today
- Continue with symptomatic treatment. Depending on clinical progress may need ERCP or discharge home and follow-up as outpatient.
- pain control, anti-emetics
- Improving lipase
- GI follow
DVT PPX - lovenox sq
Code status - Full Code
Anticipated Discharge: Within 24 hours
Subjective/Interval History
-
Date of Service: January 08, 2025
Better pain medication this morning but better later on as the day went by. Tolerating liquid diet and low-fat diet introduced by GI today.
Denies any fever or chills.
Denies any shortness of breath or chest pain. No constipation.
Objective Data
-
Labs:
Laboratory Results
01/08/25
06:56
WBC 5.9
Hgb 12.0
Hct 37.1
Plt Count 258
Sodium 140
Potassium 3.9
Chloride 106
Carbon Dioxide 26
BUN 3 L
Creatinine 0.7
Glucose 94
Calcium 9.4
Total Bilirubin 1.4 H D
AST 28
ALT 20
Alkaline Phosphatase 40
Vital Signs:
Vital Signs
Temp Pulse Resp BP Pulse Ox
98.1 F 57 16 130/86 97
01/08/25 07:45 01/08/25 08:46 01/08/25 08:07 01/08/25 08:46 01/08/25 08:50
I&O
01/07/25 01/08/25 01/09/25
06:59 06:59 06:59
Intake Total 3260 / 3260 3360 / 3360
Balance 3260 / 3260 3360 / 3360
Physical Exam
-
General: Comfortable
Respiratory: Non Labored Respirations; Negative Accessory Resp Muscle Use
Cardiac: Regular Rhythm and S1/S2
GI: Soft, Nondistended, Normal Bowel Sounds and Tender (Improved in the epigastric area)
Neuro: AO x 3
Data Reviewed
-
Labs: Labs Reviewed by me
[2025-01-08 15:35] VITALS: BP 133/75
--- NOTE | 2025-01-08 16:12 | W.DCSUMMARY ---
Discharge Summary
Discharge Data
Date of Admission: 01/06/25
Date of Discharge: 01/08/25
-
Pending Results: Yes (IgG4 antibody)
Hospital Course
Primary diagnosis:
Acute pancreatitis of unclear etiology
Secondary diagnosis:
History of prior pancreatitis
History of sphincter of Oddi dysfunction
Rheumatoid arthritis
Sjogren's syndrome
History of autoimmune hepatitis
Fatty liver
Fibromyalgia
Asthma
Hypertension
Hospital course:
Patient with a history of multiple bouts of pancreatitis with sphincter of Oddi dysfunction and having had multiple ERCP in the past presented with acute abdominal pain and turned out to be another episode of mild pancreatitis. She had lipase
elevation of 1338. MRCP showed pancreatitis involving the pancreatic body/tail. No peripancreatic collection. Pancreatic duct appeared within normal limit. History of prior cholecystectomy noted, mild prominence of biliary ducts noted, however
within the normal limits following cholecystectomy.
She is not using any alcohol.
Unclear etiology for this episode of pancreatitis. Seen by GI. Treated conservatively with improvement in his symptoms. The plan was for ERCP if she were to have progressive symptoms or requiring increasing pain medication.
An IgG4 was checked which is pending at the time of discharge.
She was advised to continue with a low-fat diet and return to the primary GI physician. She was advised to watch for recurrence of fever, fevers or nausea vomiting and in such case to return to the hospital.
Consultants on board:
GI-Tai Mims
Discharge Plan
-
Patient Disposition: Home (Routine Discharge)
Discharge Diagnosis/Procedures: Acute pancreatitis
Diet: Low Fat
Activity: As tolerated
Driving Restrictions: As prior to admission
Bathing Restrictions: None
Referrals:
Tai Donahue MD [Active, Gastroenterology] - in two to four weeks
Dena eG CRNP [Family Provider, Internal Medicine] - in less than 1 week
Prescriptions:
Continued
Therapeutic 1 TABLET tablet
1 tab PO DAILY
colestipol 1 GM tablet
2 gm PO BID
tramadol 50 MG tablet
50 mg PO Q6HPRN PRN (Reason: MILD PAIN)
calcium carbonate [Oyster Shell Calcium 500] 500 MG tablet
1,500 mg PO DAILY
naratriptan [Amerge] 2.5 MG tablet
2.5 mg PO DAILYPRN PRN (Reason: MIGRAINE)
cholecalciferol (vitamin D3) 2,000 UNITS tablet
5,000 units PO DAILY
nortriptyline 25 MG capsule
25 mg PO DAILY
fluticasone propion-salmeterol [Advair Diskus] 1 EACH blister with device
1 ea IH BID
gabapentin 100 MG capsule
100 mg PO Q4H
albuterol sulfate 90 mcg/actuation HFA aerosol inhaler
2 puff inhalation Q6H PRN (Reason: shortness of breath or wheezing) Qty: 8.5 0RF
ProAir RespiClick 90 mcg/actuation aerosol powdr breath activated
2 inh inhalation QID PRN (Reason: shortness of breath) Qty: 1 0RF
Enbrel 25 mg/0.5 mL Solution
SC QWEEK
Patient Comments:
pt is unsure of exact dose
labetalol 100 MG tablet
100 mg PO BID
hydrocodone-acetaminophen 7.5-325 mg Tablet
1 tab PO Q6H PRN (Reason: pain) Qty: 20 0RF
Discharge Orders:
Discharge Patient (As Directed); Ordered 01/08/25
Ordered By: Loc Estrada
Discharge Date and Time
Print Language: INDONESIAN
[2025-01-09 23:01] LABS: IgG Subclass 4 34 mg/dL (1-123)
== END 2025-01-08 18:32 | disposition home or self-care (01) | DRG 440 ==
LOC: 4 EAST ACU 04:58
PROVIDERS: Emergency Medicine; ADMITTING PHYSICIAN Internal Medicine; ATTENDING PHYSICIAN Internal Medicine; CONSULT PHYSICIAN Internal Medicine Gastroenterology; EMERGENCY PHYSICIAN Emergency Medicine; FAMILY PHYSICIAN Nurse Practitioner Primary Care
DX: K85.90 Acute pancreatitis without necrosis or infection, unspecified (principal); M06.9 Rheumatoid arthritis, unspecified; M35.00 Sjogren syndrome, unspecified; K75.4 Autoimmune hepatitis; K76.0 Fatty (change of) liver, not elsewhere classified; M79.7 Fibromyalgia; J45.909 Unspecified asthma, uncomplicated; I10 Essential (primary) hypertension; Z90.49 Acquired absence of other specified parts of digestive tract; K86.1 Other chronic pancreatitis; K31.84 Gastroparesis; G47.419 Narcolepsy without cataplexy; G43.909 Migraine, unspecified, not intractable, without status migrainosus; E78.5 Hyperlipidemia, unspecified; Z87.891 Personal history of nicotine dependence; Z88.2 Allergy status to sulfonamides; Z88.1 Allergy status to other antibiotic agents; Z91.048 Other nonmedicinal substance allergy status; D56.9 Thalassemia, unspecified; F31.9 Bipolar disorder, unspecified; F41.9 Anxiety disorder, unspecified; I34.0 Nonrheumatic mitral (valve) insufficiency; K21.9 Gastro-esophageal reflux disease without esophagitis; K44.9 Diaphragmatic hernia without obstruction or gangrene; K58.0 Irritable bowel syndrome with diarrhea; M81.0 Age-related osteoporosis without current pathological fracture; R13.10 Dysphagia, unspecified; Z87.442 Personal history of urinary calculi
CPT/HCPCS: 74177; 74181; 80048; 80053; 82787; 83690; 83735; 85025; 85027; 94640; Q9967

== ENCOUNTER → 2025-02-19 09:57 | Outpatient (REF) | payer BC, OTHER, SELFPAY | LOC: REG 09:57 | PROVIDERS: ATTENDING PHYSICIAN Internal Medicine; FAMILY PHYSICIAN Internal Medicine Geriatric Medicine | DX: J47.9 Bronchiectasis, uncomplicated (principal) | CPT/HCPCS: 36415 ==

== ENCOUNTER → 2025-06-18 07:14 | Outpatient (REF) | payer BC, OTHER, SELFPAY | LOC: RAD 07:14 | PROVIDERS: ATTENDING PHYSICIAN Nurse Practitioner Primary Care | DX: J47.9 Bronchiectasis, uncomplicated (principal); R63.4 Abnormal weight loss | CPT/HCPCS: 71260; Q9967 ==